=== PATIENT | male | born 1960 | race Caucasian/White ===

== ENCOUNTER 2022-09-10 07:33 | Observation (INO) | payer OTHER, SELFPAY ==
[2022-09-10] VITALS (16 sets, daily range): BP systolic 123–154; BP diastolic 71–90; PULSE 63–89; RESP 18–20; TEMP 36.6–36.8; O2SAT 92–97; BMI 19.7; BMI 19.8
--- NOTE | 2022-09-10 08:12 | CRLHL7_ITS ---
For Patients: As a result of the Cures Act, medical imaging exams and procedure reports are released immediately into your electronic medical record. You may view this report before your referring provider. If you have questions, please contact your health care provider. INDICATION: Fall on ice TECHNIQUE: Single view chest with AP and oblique views of the left chest COMPARISON: None available. FINDINGS: There is a moderate left-sided hemopneumothorax. The right hemithorax is clear. The cardiomediastinal silhouette is within normal limits. There are multiple minimally displaced fractures of the left 6th through 10th ribs. The bony thorax is otherwise intact. IMPRESSION: There is a moderate left-sided hemopneumothorax without evidence of tension. There are displaced rib fractures of the 6th through 10th ribs if pain and clinical symptoms persist, subtle, non-displaced injuries are not entirely excluded. Findings were discussed with Woodrow Rodriguez at 9:25 a.m. September 10, 2022 Dictated by Triston Sanz MD @ 09/10/2022 9:27:48 AM (Electronically Signed)
--- NOTE | 2022-09-10 08:13 | ED.GENADULT ---
HPI - General Adult General Chief complaint: Rib Pain Stated complaint: fell on ice, rib pain Time Seen by Provider: 09/10/22 07:55 History of Present Illness HPI narrative: This 61-year-old male comes in because of pain in his left posterior ribs. He was at work yesterday and attempting to pull a heavy drawer from a trailer. He slipped and fell backwards hitting his left posterior ribs on the tongue of the trailer. He had immediate pain and states that he did not sleep well last night. He came in to the waiting area a last evening for medical attention but saw busy a was and decided to come this morning. He states that he is otherwise in good health. He arrives with normal vital signs. Related Data Home Medications Medication Instructions Recorded Confirmed No Known Home Medications 09/10/22 09/10/22 Allergies Allergy/AdvReac Type Severity Reaction Status Date / Time No Known Drug Allergies Allergy Verified 09/10/22 07:44 Review of Systems Status of ROS: Reports: 10 or more systems reviewed and unremarkable except as noted in History and below Narrative: Constitutional: No fevers, no weight gain or loss. Eyes: No discharge. No vision changes. HENT: No congestion, no sore throat, no ear pain. Cardiovascular: No chest pain, no palpitations. Respiratory: No shortness of breath, no wheezes, no cough. He has pain when taking a deeper breath. Gastrointestinal: No abdominal pain, no vomiting, no diarrhea. Genitourinary: No dysuria, no hematuria. Musculoskeletal: Normal range of motion. Skin: No rashes, no pruritis. Neurological: No dizziness, weakness, sensory change, speech change. Endo/Heme/Allergies: No bruising or bleeding. No polydipsia. Pysch: no suicidality, no anxiety, no insomnia. All other systems reviewed and are negative. PFSH PFS Social History Smoking Status: Unknown if ever smoked Exam Narrative: Exam Narrative: Constitutional: Well-developed, well-nourished, no acute distress. HEENT: Normocephalic, atraumatic. Neck: Normal range of motion. Nontender. Supple. Heart: Regular. No murmurs. Normal rate. Intact distal pulses. Lungs: Clear to auscultation. No chest discomfort. No wheezes, rhonchi, or rales. Abdomen: Normal bowel sounds. Nontender. No rebound tenderness. Genitalia: Deferred. Back: No midline tenderness. Normal range of motion. Pain in the left lateral posterior ribs. No sign of bruising or skin injury. Extremities: Normal range of motion. No injury. Skin: Intact. No rash. Warm. No erythema or pallor. Neurologic: No altered sensation. No weakness. Alert and oriented. Psychiatric: No suicidality. No anxiety or depression. No insomnia. Nursing notes and vitals signs are reviewed. Const: Vital Signs, click to edit/add: Vital Signs - 24 hr 09/10/22 07:40 09/10/22 10:00 09/10/22 10:27 Temperature 97.8 F Pulse Rate 79 Pulse Rate [Right Pulse Oximeter] 84 Respiratory Rate 18 Blood Pressure Blood Pressure [Ri ght Upper Arm] 137/83 Pulse Oximetry 97 95 93 Oxygen Delivery Me thod Room Air 09/10/22 10:30 09/10/22 10:31 09/10/22 10:45 Temperature Pulse Rate 75 74 85 Pulse Rate [Right Pulse Oximeter] Respiratory Rate Blood Pressure 135/84 Blood Pressure [Ri ght Upper Arm] Pulse Oximetry 92 94 92 Oxygen Delivery Me thod Course Vital Signs Vital signs: Initial Vital Signs Temperature 97.8 F 09/10/22 07:40 Temperature Source Temporal Artery Scan 09/10/22 07:40 Pulse Rate 84 09/10/22 07:40 Respiratory Rate 18 09/10/22 07:40 Blood Pressure 137/83 09/10/22 07:40 Blood Pressure Mean 101 09/10/22 07:40 Blood Pressure Position Sitting 09/10/22 07:40 Pulse Oximetry 97 09/10/22 07:40 Oxygen Delivery Method 09/10/22 07:40 Vital Signs Temperature 97.8 F 09/10/22 07:40 Pulse Rate 84 09/10/22 07:40 Respiratory Rate 18 09/10/22 07:40 Blood Pressure 137/83 09/10/22 07:40 Pulse Oximetry 97 09/10/22 07:40 Oxygen Delivery Method 09/10/22 07:40 Temperature 97.8 F 09/10/22 07:40 Pulse Rate 85 09/10/22 10:45 Respiratory Rate 18 09/10/22 07:40 Blood Pressure 135/84 09/10/22 10:31 Pulse Oximetry 92 09/10/22 10:45 Oxygen Delivery Method 09/10/22 07:40 Medical Decision Making MDM Narrative Medical decision making narrative: This 61-year-old male comes in for evaluation of a rib injury that occurred last evening. He arrives with normal vital signs. He does describe significant pain in his left posterior ribs and states that he did not sleep last night due to pain. He came into the emergency department soon after the injury occurred last evening but went home because it was so busy here. Chest x-ray shows evidence of 4 rib fractures on the left side with associated moderate hemopneumothorax. A CT scan followed up these findings to confirm these results. An IV was established where the patient received Dilaudid 0.5 mg and Zofran 4 mg. I spoke with the surgeon on-call, Dr. Jiang, regarding these findings. She stated that a chest tube is not indicated at this time. She agrees to bring the patient into the hospital and will be the admitting physician. Lab Data Labs: Lab Results 09/10/22 09/10/22 Range/Units 10:05 10:05 WBC 11.07 H (4.50-11.00) K/uL RBC 4.24 L (4.30-5.90) m/uL Hgb 13.7 (13.5-17.5) gm/dL Hct 41.5 (37.0-53.0) % MCV 98 (80-100) fL MCH 32 (26-34) pg MCHC 33 (32-36) gm/dL RDW Coeff of Eufemia 13.1 (11.5-15.5) % Plt Count 357 (140-440) K/uL Neut % (Auto) 81.6 H (42.0-72.0) % Lymph % (Auto) 11.1 L (20-44) % [place] % (Auto) 6.8 (0.0-11.0) % Eos % (Auto) 0.3 (0.0-7.0) % Baso % (Auto) 0.1 (0.0-3.0) % Neut # (Auto) 9.00 H (1.7-7.0) K/uL Lymph # (Auto) 1.20 (0.90-2.90) K/uL [place] # (Auto) 0.80 (0.00-0.90) K/UL Eos # (Auto) 0.00 (0.00-0.50) K/uL Baso # (Auto) 0.00 (0.00-0.30) K/uL Sodium 143 (135-149) mmol/L Potassium 4.0 (3.6-5.1) mmol/L Chloride 109 (96-114) mmol/L Carbon Dioxide 26 (20-32) mmol/L BUN 9 (7-30) mg/dL Creatinine 0.6 (0.5-1.5) mg/dL Estimated Creat Clear 123.32 Estimated GFR 111 ml/min Glucose 102 (60-115) mg/dL Calcium 9.4 (8.4-10.6) mg/dL Imaging Data Chest x-ray: Radiologist's impression: There is a moderate left-sided hemopneumothorax. The right hemithorax is clear. The cardiomediastinal silhouette is within normal limits. There are multiple minimally displaced fractures of the left 6th through 10th ribs. The bony thorax is otherwise intact. IMPRESSION: There is a moderate left-sided hemopneumothorax without evidence of tension. There are displaced rib fractures of the 6th through 10th ribs if pain and clinical symptoms persist, subtle, non-displaced injuries are not entirely excluded. CT scan - chest: Radiologist's impression: Redemonstration of multiple left-sided rib fractures including the 6th through 10th ribs with somewhat comminuted fractures of the posterior 8th and 9th ribs with perpendicularly oriented shards of bone fragment seen best on series 2, image 52 which may protrude into the adjacent parietal pleura. Moderate hemopneumothorax is again seen without evidence of significant mediastinal shift. Discharge Plan Discharge Clinical Impression: Multiple fractures of ribs, Hemopneumothorax on left Patient Disposition: Admitted As Inpatient Condition: Unchanged Prescriptions: No Action No Known Home Medications Follow Up/Referrals: Provider,Not a Local [Primary Care Provider] -
--- NOTE | 2022-09-10 09:33 | CRLHL7_ITS ---
For Patients: As a result of the Century Cures Act, medical imaging exams and procedure reports are released immediately into your electronic medical record. You may view this report before your referring provider. If you have questions, please contact your health care provider. Indication: Left-sided rib fractures and hemopneumothorax Technique: Volumetric multidetector CT images of the chest were obtained without the administration of IV contrast. Comparison: Three views left ribs September 10, 2022 Findings: The thoracic inlet and thyroid gland are unremarkable. The thoracic aorta is nonaneurysmal. There is no mediastinal, hilar or axillary adenopathy. There is mild central bronchial thickening. There is redemonstration left-sided hemopneumothorax with moderate accumulation of air and hyperdense pleural fluid. There is likely associated pulmonary contusion and atelectasis. There is right basilar atelectasis. Otherwise, the right hemithorax is well aerated without evidence of mediastinal shift. There are again seen multiple comminuted posterior fractures of left ribs including the predominantly 8th and 9th ribs with additional nondisplaced fracture of the posterior 10th rib. Lateral fractures of 6th, 7th and 8th ribs are appreciated. Comminuted fractures at the posterior 8th and 9th ribs demonstrate perpendicularly oriented shards of bone fragment seen on series 2, image 52 which may protrude through the parietal pleura. The partially visualized upper abdomen demonstrates no radiopaque calculi within the collecting system. Otherwise the upper abdominal viscera are grossly within normal limits. The thoracic vertebral body heights demonstrate somewhat age indeterminate deformities of the superior T2 T3 and T4 levels. There is no significant spondylolisthesis or obvious displaced fracture. Impression: Redemonstration of multiple left-sided rib fractures including the 6th through 10th ribs with somewhat comminuted fractures of the posterior 8th and 9th ribs with perpendicularly oriented shards of bone fragment seen best on series 2, image 52 which may protrude into the adjacent parietal pleura. Moderate hemopneumothorax is again seen without evidence of significant mediastinal shift. Please note that all CT scans at this facility use dose modulation, iterative reconstruction, and/or weight-based dosing when appropriate to reduce radiation dose to as low as reasonably achievable. Dictated by Triston Sanz MD @ 09/10/2022 10:15:34 AM (Electronically Signed)
[2022-09-10] MEDS: HYDROmorphone 0.5 mg/0.5 ml inj IVP ×4 (10:24→22:19)
[2022-09-10] MEDS: ONDANSETRON 2 MG/ML inj 4 MG IVP (10:24)
[2022-09-10 10:25] LABS: Basophils Percent Auto 0.1 % (0.0-3.0); Eosinophils Percent Auto 0.3 % (0.0-7.0); Hematocrit 41.5 % (37.0-53.0); Hemoglobin* 13.7 gm/dL (13.5-17.5); Immature Granulocytes Pct Auto 0.1 %; Lymphocytes Percent Auto 11.1 % (20-44); Mean Corpuscular HGB Conc 33 gm/dL (32-36); Mean Corpuscular Hemoglobin 32 pg (26-34); Mean Corpuscular Volume 98 fL (80-100); Monocytes Percent Auto 6.8 % (0.0-11.0); Neutrophils Percent Auto 81.6 % (42.0-72.0); Platelet Count* 357 K/uL (140-440); RDW Coefficient of Variation % 13.1 % (11.5-15.5); Red Blood Count 4.24 m/uL (4.30-5.90); White Blood Count* 11.07 K/uL (4.50-11.00)
[2022-09-10 10:28] LABS: Chloride* 109 mmol/L (96-114); Sodium* 143 mmol/L (135-149)
[2022-09-10 10:29] LABS: Slide Review Reflex No
[2022-09-10 10:31] LABS: Creatinine* 0.6 mg/dL (0.5-1.5); Est. Creatinine Clearance* 123.32; Estimated Glomerular Filt Rate 111 ml/min
[2022-09-10 10:32] LABS: Blood Urea Nitrogen* 9 mg/dL (7-30); Calcium* 9.4 mg/dL (8.4-10.6); Carbon Dioxide* 26 mmol/L (20-32); Glucose* 102 mg/dL (60-115)
--- NOTE | 2022-09-10 11:33 | PM.GSHP ---
History of Present Illness History of Present Illness Date Seen: 09/10/22 Chief complaint: fell on ice, rib pain Narrative: Musa Mathews is a 61 year old male who presented to the emergency department after falling on the ice yesterday. 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 He landed on his left side. He denies hitting his head or losing consciousness. Since landing he has had persistent left-sided pain with deep breaths or coughing. He denies any shortness of breath at rest or with movement. No abdominal pain. No other concerns. He is otherwise healthy and does not take medications on a daily basis. He does smoke 1 pack per day. Review of Systems Status of ROS: Reports: 10 or more systems reviewed and unremarkable except as noted in History and below [facility] Social History Smoking Status: Unknown if ever smoked Meds Home Medications and Allergies Home Medications Medication Instructions Recorded Confirmed Type No Known Home Medications 09/10/22 09/10/22 History Allergies Allergy/AdvReac Type Severity Reaction Status Date / Time No Known Drug Allergies Allergy Verified 09/10/22 07:44 Exam Narrative: Exam Narrative: General: Alert and oriented, no acute distress. Lying comfortably in bed. HEENT: PERRLA, atraumatic and normocephalic. Normal external nares and normal external ears Neck: No lymphadenopathy or tenderness Chest: Tender to palpation left side anterior and lateral. No overlying ecchymoses. No subcutaneous emphysema appreciated. Respiratory: Equal breath rise, maintained on room air. Clear breath sounds bilaterally CV: Regular rhythm rate, well perfused Abdomen: Soft, nontender and nondistended Extremities: No evidence of injury Const: Vital Signs, click to edit/add: Vital Signs - 24 hr 09/10/22 07:40 09/10/22 10:00 09/10/22 10:27 Temperature 97.8 F Pulse Rate 79 Pulse Rate [Right Pulse Oximeter] 84 Respiratory Rate 18 Blood Pressure Blood Pressure [Ri ght Upper Arm] 137/83 Pulse Oximetry 97 95 93 Oxygen Delivery Me thod Room Air 09/10/22 10:30 09/10/22 10:31 09/10/22 10:45 Temperature Pulse Rate 75 74 85 Pulse Rate [Right Pulse Oximeter] Respiratory Rate Blood Pressure 135/84 Blood Pressure [Ri ght Upper Arm] Pulse Oximetry 92 94 92 Oxygen Delivery Me thod Results Results Chest x-ray: report reviewed and image reviewed CT scan - chest: report reviewed and image reviewed Assessment and Plan Assessment and plan (1) Hemopneumothorax on left: Status: Acute Plan Patient is a 61-year-old male with recent fall on ice. Workup was obtained in the emergency department with imaging demonstrating left-sided rib fractures and a moderate-sized pneumothorax. Patient is asymptomatic at this time with no reporting shortness of breath. No other evidence of injuries. No need for chest tube at this time. Will admit patient for observation. -regular diet -IV and p.o. pain meds -encourage IS and patient to take deep breaths -encourage ambulation and SCDs for DVT prophylaxis -will plan for repeat chest x-ray tomorrow morning or sooner if patient develops clinical symptoms of increasing chest pain or shortness of breaths.
--- NOTE | 2022-09-10 11:35 | W.PC.EDHO ---
Primary Language: Tajik Preferred Language: Orientation Status: [x] Alert & Oriented [] Slight Confusion [] Known Dx Dementia Transfers By: [x] Assist of 1 [] Assist of 2 [] Lift Active Medications Discontinued Medications Generic Name Dose Route Start Last Admin Trade Name Freq PRN Reason Stop Dose Admin Hydromorphone HCl 0.5 mg 09/10/22 09:34 09/10/22 10:24 Hydromorphone 0.5 Mg/0.5 Ml Inj IVP 09/10/22 09:35 0.5 mg ONCE ONE Administration Ondansetron HCl 4 mg 09/10/22 09:34 09/10/22 10:24 Ondansetron 2 Mg/Ml Inj IVP 09/10/22 09:35 4 mg ONCE ONE Administration Description of Symptoms ED Triage Present Problem slipped on ice yesterday. striking left back rib Description area. Pain Pain Intensity 10 Pain Intensity 10 Pain Scale Used Numeric (1 - 10) Pain Scale Used Numeric (1 - 10) IV Insertion/Site Date of IV Line Insertion [ 09/10/22 Right Forearm] Oxygen Administration Pulse Oximetry 92 Pulse Oximetry 94 Pulse Oximetry 92 Pulse Oximetry 93 Pulse Oximetry 95 Pulse Oximetry 97 Oxygen Delivery Method Room Air
[2022-09-10 12:08] LABS: SARS PCR* Negative SARS-CoV-2 (Negative)
[2022-09-10] MEDS: OxyCODONE/APAP 5-325 TABLET PO ×3 (12:32→22:19)
--- NOTE | 2022-09-10 19:22 | PC.NURSE ---
Pt up independently in room. Rates pain 4-8/10, see MAR for medication administration with relief. Stands to splint left side for coughing. IS education and encouragement with understanding. Pt able to void and BM without issue. Pt understands plan for X-ray and reassessment of hemopneumothorax in a.m.
[2022-09-10] MEDS: IBUPROFEN 600 MG TABLET PO (20:04)
[2022-09-10] MEDS: SODIUM CHLORIDE 0.9 % (FLUSH) 10 ML SYRINGE IVF (22:41)
[2022-09-11] MEDS: OxyCODONE/APAP 5-325 TABLET PO ×2 (01:59→06:46)
[2022-09-11 03:00] VITALS: BP 157/82; PULSE 80; RESP 20; TEMP 36.9; O2SAT 93
[2022-09-11] MEDS: diphenhydrAMINE 50 MG/ML inj IVP (03:58)
[2022-09-11] MEDS: IBUPROFEN 600 MG TABLET PO (03:59)
[2022-09-11] MEDS: SODIUM CHLORIDE 0.9 % (FLUSH) 10 ML SYRINGE IVF (04:00)
--- NOTE | 2022-09-11 06:59 | PC.NURSE ---
: indep. Walked halls 3x. Complains of pain with coughing. Pt states he is ?fine? when he is resting and has an ice pack on his left chest. O2 sats 90-92%.
[2022-09-11 07:28] VITALS: O2SAT 94
[2022-09-11 07:29] VITALS: BP 141/67; PULSE 92; RESP 20; TEMP 36.6; O2SAT 94
--- NOTE | 2022-09-11 08:00 | CRLHL7_ITS ---
For Patients: As a result of the Century Cures Act, medical imaging exams and procedure reports are released immediately into your electronic medical record. You may view this report before your referring provider. If you have questions, please contact your health care provider. INDICATION: Posttraumatic pneumothorax. TECHNIQUE: One-view chest. COMPARISON: 09/10/2022. Findings/impression : A left pneumothorax is overall similar in size compared to 1 day prior. The apical component is slightly smaller, measuring approximately 2.4 cm, but the basilar component is slightly more prominent. There is increasing opacity at the left lung base which may reflect atelectasis or pleural fluid including blood products given rib fractures. Left-sided rib fractures again noted. The right lung remains clear. Dictated by Gareth Brand MD @ 09/11/2022 8:58:45 AM (Electronically Signed)
--- NOTE | 2022-09-11 09:01 | P.DS_ITS ---
DS: Providers Provider Date Seen: 09/11/22 Date of admission: 09/10/22 11:49 Primary care physician: Not a Local Provider Admitting Clinician: Nicolette Jiang MD Attending Physician on discharge: Nicolette Jiang MD DS: Summary Hospital Course Hospital Course: Patient presented to the emergency department after falling on ice. On workup he had multiple left-sided rib fractures as well as a moderate-sized hemopneumothorax. He was admitted to the hospital for observation. During his hospital stay he did require some narcotic pain medicine to control his pain and allow him to take deep breaths. He remained hemodynamically stable and afebrile. A repeat chest x-ray showed improving versus stable hemopneumothorax. He was discharged home with plans to follow-up with a primary care provider in 1 week. Recommendation is for a repeat chest x-ray at that time and re- evaluation. He was instructed to present to the emergency department should he develop any increasing shortness of breath or chest pain. Time Spent with Patient Time attestation: Total time spent providing and/or coordinating discharge services: Exam Narrative: Exam Narrative: General: Alert and oriented, no acute distress Respiratory: Crackles in left lung base. Clear breath sounds on left side at the apices. Right lung with clear breath sounds. CV: Regular rhythm rate, well perfused Const: Vital Signs, click to edit/add: Vital Signs - 24 hr 09/10/22 10:00 09/10/22 10:27 09/10/22 10:30 Temperature Pulse Rate 79 75 Pulse Rate [Pulse Oximeter] Respiratory Rate Blood Pressure Blood Pressure [Le ft Arm] Pulse Oximetry 95 93 92 [facility] 10:31 09/10/22 10:45 09/10/22 11:01 Temperature Pulse Rate 74 85 65 Pulse Rate [Pulse Oximeter] Respiratory Rate Blood Pressure 135/84 123/71 Blood Pressure [Le ft Arm] Pulse Oximetry 94 92 93 Oxygen Delivery Nm thod 09/10/22 11:02 09/10/22 11:15 09/10/22 11:30 Temperature Pulse Rate 63 64 71 Pulse Rate [Pulse Oximeter] Respiratory Rate Blood Pressure Blood Pressure [Le ft Arm] Pulse Oximetry 92 92 94 [facility] 09/10/22 11:31 09/10/22 13:45 09/10/22 15:00 Temperature 97.9 F 98.2 F Pulse Rate 72 Pulse Rate [Pulse Oximeter] 70 65 Respiratory Rate 18 18 Blood Pressure 125/81 Blood Pressure [Le ft Arm] 124/81 137/90 H Pulse Oximetry 93 93 94 Oxygen Delivery Me thod Room Air Room Air 09/10/22 15:00 09/10/22 14:00 09/10/22 20:38 Temperature 98 F Pulse Rate Pulse Rate [Pulse Oximeter] 71 Respiratory Rate 18 18 Blood Pressure Blood Pressure [Le ft Arm] 130/73 Pulse Oximetry 94 94 94 Oxygen Delivery Me thod Room Air Room Air 09/10/22 23:00 09/10/22 23:00 09/10/22 23:00 Temperature 98 F Pulse Rate Pulse Rate [Pulse Oximeter] 89 89 Respiratory Rate 20 20 Blood Pressure Blood Pressure [Le ft Arm] 154/88 H Pulse Oximetry 94 92 Oxygen Delivery Nm thod Room Air 09/11/22 03:00 09/11/22 07:28 09/11/22 07:29 Temperature 98.5 F 98 F Pulse Rate Pulse Rate [Pulse Oximeter] 80 92 Respiratory Rate 20 20 Blood Pressure Blood Pressure [Le ft Arm] 157/82 H 141/67 H Pulse Oximetry 93 94 94 Oxygen Delivery Nm thod Room Air Room Air DS: Data Data Completed and Pending Labs on day of discharge: Labs from last 24 hours 09/10/22 09/10/22 09/10/22 10:54 10:05 10:05 WBC 11.07 H RBC 4.24 L Hgb 13.7 Hct 41.5 MCV 98 MCH 32 MCHC 33 RDW Coeff of Eufemia 13.1 Plt Count 357 Neut % (Auto) 81.6 H Lymph % (Auto) 11.1 L [place] % (Auto) 6.8 Eos % (Auto) 0.3 Baso % (Auto) 0.1 Neut # (Auto) 9.00 H Lymph # (Auto) 1.20 [place] # (Auto) 0.80 Eos # (Auto) 0.00 Baso # (Auto) 0.00 Sodium 143 Potassium 4.0 Chloride 109 Carbon Dioxide 26 BUN 9 Creatinine 0.6 Estimated Creat Clear 123.32 Estimated GFR 111 Glucose 102 Calcium 9.4 SARS-CoV-2 (PCR) Negative SARS-CoV-2 Discharge Plan Discharge Disposition: Home, Self-Care Date of Admission: 09/10/22 11:49 Attending Provider on Discharge: Nicolette Jiang Primary Care Provider: Provider,Not a Local Condition: Stable Anticipated Discharge Date/Time: 09/11/22 08:56 Discharge Medications: New oxycodone 5 mg tablet 5 mg PO Q6H PRN (Reason: pain) Qty: 20 0RF senna 8.6 mg capsule 8.6 mg PO DAILY PRN (Reason: constipation) Qty: 90 0RF Discharge Orders: Discharge Order (Routine); Ordered 09/11/22 Ordered By: Nicolette Jiang Patient Education: Traumatic Pneumothorax (GEN) Additional Instructions: You were prescribed a narcotic pain medication. In addition you may supplement with Tylenol and/or ibuprofen. Be sure to not exceed greater than 4 g of Tylenol in a 24 hour period. While on narcotic pain medicine please take stool softeners. A prescription of stool softeners has been sent to the pharmacy. Stop if having greater than 2 stools per day. You were sent home with an inspiratory spirometer. Make sure that use this at least 10 times per day and continue to take deep breaths. If you experience increasing chest pain or shortness of breath please contact your primary care doctor or come to the emergency department. Activity Level: No strenuous activity Activity Detail: No strenuous activity for the next week, this includes heavy lifting greater than 20 lb. You will be evaluated by a doctor after hospital stay. A repeat chest x-ray will be done at that time and they can advise you on when to return to work and how long you may need to be on light duty. Discharge Diet: Regular Follow Up Appointments: Provider,Not a Local [Primary Care Provider] - Forms: Awareness Card[employer] Info Instructions
[2022-09-11 10:39] VITALS: BP 125/81; PULSE 72; RESP 20; TEMP 36.6
--- NOTE | 2022-09-11 10:40 | PC.NURSE ---
Discharge: Patient pleasant and cooperative. Pain managed well with ice and PRN medication. Walking frequently in halls, independent. Vitals stable and WNL. Using incentive spirometer independently. IV removed, discharge instructions and follow ups reviewed, questions answered as needed. Patient ambulated to exit, friend to pickle pumper, discharged to home @ 1030.
== END 2022-09-11 10:30 | disposition home or self-care (01) ==
LOC: ED 11:04 → MEDSURG 11:49
PROVIDERS: Admitting Provider Surgery; Emergency Provider Emergency Medicine Emergency Medical Services; PCP Physician Assistant Medical; Visit Provider Surgery
DX: S27.0XXA Traumatic pneumothorax, initial encounter (principal); S22.42XA Multiple fractures of ribs, left side, initial encounter for closed fracture; W00.9XXA Unspecified fall due to ice and snow, initial encounter; R07.81 Pleurodynia
CPT/HCPCS: 36415; 71045; 71101; 71250; 80048; 85025; 87635; 94761; 96374; 96375; 96376; 99285; A9270; G0378; G0379; J1170; J1200; J2405